=== PATIENT | female | born 1995 | race Caucasian/White ===

== ENCOUNTER 2016-08-23 11:48 | Emergency (ER) | payer OTHER ==
--- NOTE | 2016-08-23 11:54 | ED NURSING NOTES ---
Clinical Report - Nurses Formerly [facility] [address] [place] [address] 08/23/2016 8:10 Patient: SHERRI RAO TRIAGE Triage time 08:13. Acuity: LEVEL 3. Chief Complaint: NAUSEA, VOMITING and DIARRHEA. 08:22 08/23/16. Alert. No acute distress. --08:22 Simba Rai R.N. 08:17 08/23/16. BP: 112/81. HR: 116. RR: 17. O2 saturation: 99% on room air. Temp: 98.5 F (oral). Pain level now 02/19. --08:22 Simba Rai R.N. Weight: 90.7 kg stated. Height/Length: 68 inches Per Patient. BMI: 30.4. --08:15 Simba Rai R.N. Medications Vitamins Oral. --08:20 Simba Rai R.N. Allergies Sulfa Antibiotics. --08:20 Simba Rai R.N. Cefzil. --08:20 Simba Rai R.N. Medication/allergy information source: the patient. --08:22 Simba Rai R.N. History Historian: patient. Primary physician (no pcp. care through [facility]). ( 32 weeks . n/v/d and abdominal pain starting last night. states she began having low back pain and hip discomfort this morning. States abdominal pain came and went last night but hasn't been present for roughly 1 hour.). This started last night. 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 PAST MEDICAL HX: 1. Para 0. Abortions 0. Confirmed : EDC: 10/14/16. Has had care in clinic. SOCIAL HX: Never smoker. History of drug use: marijuana. Recently used drugs days ago. No alcohol use. FALL RISK ASSESSMENT: Fall risk assessment completed. No fall risk identified. NUTRITIONAL RISK ASSESSMENT: The nutritional risk assessment revealed no deficiencies. FUNCTIONAL ASSESSMENT: Functional assessment: no impairments noted. LEARNING NEEDS ASSESSMENT: The learning needs assessment revealed no barriers. SKIN INTEGRITY ASSESSMENT: Skin integrity risk assessment completed. No skin integrity risk identified. --08:22 Simba Rai R.N. PROBLEMS: Vaginitis. --08:20 Simba Rai R.N. ADDITIONAL SURGERIES: Wart removal. --08:20 Simba Rai R.N. Interventions ID band on patient. To treatment room. --08:22 Simba Rai R.N. PHYSICAL ASSESSMENT 08:23 08/23/16. GENERAL / NEURO / PSYCH: Alert. Oriented X 4. Appears in no acute distress. HEENT: Mucous membranes are pink. RESPIRATORY: Respirations not labored. CVS: Capillary refill less than 2 seconds. GI / : Abdomen soft and nontender. SKIN: Skin is warm and dry. --08:23 Simba Rai R.N. NURSING PROGRESS NOTES ( T 158). --08:23 Simba Rai R.N. 08:23 08/23/16. The plan of care for this patient has been created. Head of bed elevated. Call light placed in reach. Bed placed in lowest position. Brakes of bed on. Patient ready for evaluation- chart flagged. --08:23 Simba Rai R.N. 08:33 08/23/2016 Site #1 started via IV in the right antecubital space with an 20g angiocath, with aseptic technique and good blood return; one attempt. Blood drawn: rainbow set. Labeled in the presence of the patient and sent to the lab. Saline lock flushed with 10 mL saline. --08:33 Regina Broja R.N. 08:34 08/23/2016 Started bag #1 1000 mL IV Fluids IV NS (Saline); at 1000 mL/hr over 1 hour(s) via site #1 via IV pump. Allergies verified and confirmed 5 rights. IV patency established. IV site checked: no pain, redness, or swelling. IV flushed thoroughly pre- and post-medication administration. --08:34 Regina Borja R.N. 09:25 08/23/2016 Tylenol (Acetaminophen) PO Capsules 650 mg given. Allergies verified and confirmed 5 rights. --09:30 Simba Rai R.N. 09:20. Patient ID band checked for patient name and birthdate: patient confirmed. Instructions provided to collect clean catch urine and patient verbalized understanding. Clean catch urine collected with return of sofía-colored clear urine; odor is normal; sample sent to lab for urinalysis and culture. Specimen labeled in the presence of the patient. --09:34 Simba Rai R.N. 09:44 08/23/16. BP: 101/70. HR: 104. RR: 16. Pain level now 02/19. --09:44 Simba Rai R.N. 09:29 08/23/2016 IV Fluids IV NS Discontinued: bag #1 infused. Total amount infused: 1000 mL. IV patency established. IV site checked: no pain, redness, or swelling. IV flushed thoroughly. --09:50 Simba Rai R.N. <<STRICKEN ENTRY-- 09:30 08/23/2016 Started bag #1 1000 mL IV Fluids IV NS (Saline); at 750 mL/hr over 90 minute(s) via site #1 via IV pump. Allergies verified and confirmed 5 rights. IV patency established. IV site checked: no pain, redness, or swelling. IV flushed thoroughly pre- and post-medication administration. Completed per protocol. --09:49 Simba Rai R.N. --END STRIKE>> Change to Details. --09:49 Simba Rai R.N. 09:30 08/23/2016 Started bag #2 1000 IV Fluids IV NS (Saline); at 750 mL/hr over 90 minute(s) via site #1 via IV pump. Allergies verified and confirmed 5 rights. IV patency established. IV site checked: no pain, redness, or swelling. IV flushed thoroughly pre- and post-medication administration. Completed per protocol. --09:49 Simba Rai R.N. 09:58 08/23/16. Patient transported by stretcher with tech. (to OB for NST. Handoff report given to OB by phone.). --09:58 Simba Rai R.N. 11:13 08/23/16. BP: 109/68. HR: 100. RR: 15. O2 saturation: 100%. Pain level now 01/19. --11:13 Simba Rai R.N. 11:10 08/23/2016 IV Fluids IV NS Bag Change: bag #2 infused. Total amount infused: 1000. STARTED bag #3 (1000 mL) at 999 mL/hr via IV pump. Confirmed 5 rights. IV patency established. IV site checked: no pain, redness, or swelling. IV flushed thoroughly. --11:47 Simba Rai R.N. 11:12 08/23/16. Patient returned by wheelchair with tech. (OB). --11:12 Simba Rai R.N. 11:46 08/23/2016 Macrobid PO Capsules 100 mg given. Allergies verified and confirmed 5 rights. --11:56 Simba Rai R.N. 12:12 08/23/16. BP: 104/55. HR: 82. RR: 14. O2 saturation: 100% on room air. Temp: 98.2 F (oral). Pain level now 12/20. --12:13 Simba Rai R.N. 12:13 08/23/16. --12:13 Simba Rai R.N. Assisted patient to bathroom, to ambulate and back to bed; tolerated well. --12:17 Simba Rai R.N. 12:34 08/23/2016 IV Fluids IV NS Discontinued: bag #3 infused upon discharge. Total amount infused: 1000 mL. IV patency established. IV site checked: no pain, redness, or swelling. IV flushed thoroughly. --12:44 Simba Rai R.N. DISPOSITION / DISCHARGE 12:37 08/23/2016 Site #1 removed upon discharge. Catheter intact. Bandage applied. --12:42 Simba Rai R.N. 12:43 08/23/16. Departure time: 1240. Condition at departure: improved and stable. ( aware of discharge vitals). No learning barriers present. Discharge instructions provided and reviewed with the patient and spouse. Reviewed medication(s) side effects, precautions, dosing and course information. Prescription(s) given to the patient. Patient and desktop architect verbalized understanding. Written instructions provided in Czech. The patient was discharged by the physician. She was discharged home and accompanied by desktop architect. She left the Emergency Department ambulatory and via private vehicle. Metal Model Builder driving. --12:43 Simba Rai R.N. 12:41 08/23/16. BP: 103/60. HR: 101. RR: 16. O2 saturation: 100% on room air. Temp: 98.1 F (oral). Pain level now 12/20. --12:43 Simba Rai R.N. Locked/Released at 08/24/2016 6:56 by Simba Rai R.N.
--- NOTE | 2016-08-23 11:54 | ED CLINICAL REPORT ---
Clinical Report - Physicians/Mid Levels [facility] [address] [place] [address] 08/23/2016 8:10 Patient: SHERRI RAO Arrived- By private vehicle. Historian- patient. HISTORY OF PRESENT ILLNESS Chief Complaint: VOMITING and DIARRHEA. This started today and is still present. It was abrupt in onset and has been constant but is not gone now. The patient has had nausea, vomiting and diarrhea. No black stools, bloody stools or abdominal pain. She has had contact with a sick significant other. (similar symptoms after eating pizza). The illness is described as moderate. (Reports being a . Has regular care. Estimated gestational age is 32w. Patient with lower abdominal pain that radiates to the back and legs. No swelling noted. NO hx of DVT/PE. NO CP or shortness of breath). Similar symptoms previously: None. Recent medical care: Not recently seen/assessed. REVIEW OF SYSTEMS No fever, headache, chest pain, difficulty breathing or skin rash. No chills, fever, abnormal bleeding, urinary frequency or vaginal discharge. No difficulty with urination. Currently . PAST HISTORY PCP: Eloina Correaife Vaginitis. Wart removal. SOCIAL HISTORY Never smoker. History of occasional drug use: marijuana. No alcohol use. No recent travel. Is a local resident. ADDITIONAL NOTES The nursing notes have been reviewed. PHYSICAL EXAM Vital Signs: 08/23/2016 08:17 BP: 112/81. HR: 116. RR: 17. O2 saturation: 99%. Temp: 98.5 F. Blood pressure normal. Tachycardic. Oxygen saturation normal. Appearance: Alert. Oriented X3. Patient in mild distress. Eyes: Pupils equal, round and reactive to light. Eyes normal inspection. ENT: Ears normal. Nose normal. Pharynx normal. Neck: Normal inspection. Neck supple. CVS: Normal heart rate and rhythm. Heart sounds normal. Pulses normal. Respiratory: No respiratory distress. Breath sounds normal. No rales, rhonchi or wheezes. Abdomen: Soft and nontender. Bowel sounds normal. (Fundus palpated between the xyphoid process and umbilicus.). Back: Normal inspection. Skin: Skin warm and dry. Normal skin color. No rash. Normal skin turgor. Extremities: Extremities exhibit normal ROM. No lower extremity edema. No calf tenderness. No lower extremity edema. LABS, X-RAYS, AND EKG Laboratory Tests: UA-Culture if indicated: (THO: 08/23/2016 10:20) ( [facility] 08/23/2016 10:59) Final results Test Result Flag Units (Reference) URINE COLOR YELLOW URINE APPEARANCE CLEAR URINE GLUCOSE NEGATIVE (NEGATIVE) URINE BILIRUBIN NEGATIVE (NEGATIVE) URINE KETONE 3+ (NEGATIVE) URINE SPECIFIC GRAVITY >= 1.030 (1.010-1.030) URINE PH 6.0 (5.0-8.0) URINE PROTEIN TRACE (NEGATIVE) URINE UROBILINOGEN 0.2 EU/dL (0.2-1.0) URINE NITRITE NEGATIVE (NEGATIVE) URINE BLOOD NEGATIVE (NEGATIVE) URINE LEUK ESTERASE NEGATIVE (NEGATIVE) URINE RBC 1-3 rbc/hpf (0-1) URINE WBC 1-3 wbc/hpf (0-1) URINE EPITHELIAL CELLS 0-1 EPI/hpf (0-5) URINE BACTERIA MODERATE (2+ TO 3+) (NONE SEEN) URINE COMMENT CULTURE INDICATED 2+ MUCOUS. FEW TRANSITIONAL EPITHELIAL CELLS.URINE CULTURES ARE SET-UP BASED ON THE FOLLOWING CRITERIA:POSITIVE NITRITEPOSITIVE LEUKOCYTE ESTERASEGREATER THAN 10 WHITE BLOOD CELLSMODERATE (2+) OR GREATER BACTERIA UA-Culture if indicated: (THO: 08/23/2016 09:20) ( [facility] 08/23/2016 09:55) Final results Test Result Flag Units (Reference) URINE COLOR YELLOW URINE APPEARANCE CLEAR URINE GLUCOSE NEGATIVE (NEGATIVE) URINE BILIRUBIN ICTOTEST NEG (NEGATIVE) URINE KETONE 3+ (NEGATIVE) URINE SPECIFIC GRAVITY >= 1.030 (1.010-1.030) URINE PH 5.5 (5.0-8.0) URINE PROTEIN 1+ (NEGATIVE) URINE UROBILINOGEN 0.2 EU/dL (0.2-1.0) URINE NITRITE NEGATIVE (NEGATIVE) URINE BLOOD TRACE-INTACT (NEGATIVE) URINE LEUK ESTERASE POSITIVE (NEGATIVE) URINE RBC 5-10 rbc/hpf (0-1) URINE WBC 25-50 wbc/hpf (0-1) URINE EPITHELIAL CELLS 5-10 EPI/hpf (0-5) URINE BACTERIA MODERATE (2+ TO 3+) (NONE SEEN) URINE COMMENT CULTURE INDICATED 2+ MUCOUS. FEW TRANSITIONAL EPITHELIAL CELLS.URINE CULTURES ARE SET-UP BASED ON THE FOLLOWING CRITERIA:POSITIVE NITRITEPOSITIVE LEUKOCYTE ESTERASEGREATER THAN 10 WHITE BLOOD CELLSMODERATE (2+) OR GREATER BACTERIA CBC w Diff: (THO: 08/23/2016 08:30) ( MsgRcvd 08/23/2016 08:44) Final results Test Result Flag Units (Reference) WHITE BLOOD COUNT 13.0 H K/uL (4.5-11.5) RED BLOOD COUNT 4.96 M/uL (4.00-5.20) HEMOGLOBIN 13.7 gm/dL (12.0-16.0) HEMATOCRIT 40.6 % (36.0-46.0) MEAN CELL VOLUME 82 fL (80-100) MEAN CORPUSCULAR HGB 28 pg (26-34) MEAN CORPUSCULAR HGB CONC 34 g/dL (31-37) RED CELL DISTRIBUTION WIDTH 12.4 % (11.6-14.8) PLATELET COUNT 280 K/uL (150-400) NEUTROPHIL % 94.2 H % (50-75) LYMPH % 3.2 L % (25-40) MONO % 2.6 L % (3-14) EOSINOPHIL % 0 % (0-4) BASOPHIL % 0 % (0-2) CMP: (THO: 08/23/2016 08:30) ( MsgRcvd 08/23/2016 09:24) Final results Test Result Flag Units (Reference) GLUCOSE 131 H mg/dL (70-110) BUN 8 mg/dL (7-18) CREATININE 0.6 mg/dL (0.6-1.3) Estimated GFR >60 mL/min Estimated GFR- >60 mL/min Note: Persistent reduction over 3 months in eGFR<60 mL/min/1.73 m2 defines CKD. Patients with eGFR values>=60 mL/min/1.73 m2 may also have CKD if evidence ofpersistent proteinuria. Additional information may be foundat www.kidney.org. SODIUM 136 mmol/L (136-145) POTASSIUM 3.8 mmol/L (3.5-5.1) CHLORIDE 102 mmol/L (98-107) CARBON DIOXIDE 16 L mmol/L (21-32) CALCIUM 8.8 mg/dL (8.5-10.1) TOTAL PROTEIN 7.3 g/dL (6.4-8.2) ALBUMIN 3.1 L g/dL (3.3-5.0) BILIRUBIN, TOTAL 0.7 mg/dL (0.0-1.0) ALKALINE PHOSPHATASE 134 H U/L (46-116) AST (SGOT) 16 U/L (15-37) ALT (SGPT) 18 U/L (12-78) LIPASE 152 U/L (73-393) BETA HCG, QUANTITATIVE 61005 mIU/mL REFERENCE RANGE:Adult Males: <2 mIU/mLNon- Females: <6 mIU/mL Females:Approximate Approximate hCGGestational Age Range (mIU/mL) 0-1 week 0-501-2 weeks 40-3002-3 weeks 100-85255-1 weeks 500-22762-4 months 5,000-200,0002-3 months 10,000-100,0002nd trimester 3,000-50,0003rd trimester 1,000-50,000 Culture, Urine: (THO: 08/23/2016 10:20) ( MsgRcvd 08/24/2016 08:28) IP Test Result Flag Units (Reference) CULTURE, URINE DATE: 08/24/16 NO GROWTH AT:: NO GROWTH AT 1 DAY PRELIM REPORT: PRELIMINARY REPORT #1 Culture, Urine: (THO: 08/23/2016 09:20) ( MsgRcvd 08/24/2016 08:28) IP Test Result Flag Units (Reference) CULTURE, URINE DATE: 08/24/16 PRELIM REPORT: PRELIMINARY REPORT #1 VERY EARLY GROWTH: VERY EARLY GROWTH: CULTURE TOO YOUNG FOR WORKUP-REINCUBATED . PROGRESS AND PROCEDURES Course of Care: Patient with 32w and regular care. Patient with n/v/d and lower abdominal pain. + sick contact. Discussed with patient nausea medication. Report "none of those work" Reports marijuana helps. Declines offers of nausea medications. Is agreeable to Tylenol. Labs ordered for electrolyte abnormalities, UTI, and LFTs. Patient to be signed out to the oncoming doctor, Dr. Norris. 09:24 08/23/16. Assumed care from Dr Flores. Directed history and physical performed. She certainly has gastroenteritis. I want to be sure that she is not also in labor at [address] Luu agrees to send orders to L&D for NST and then she will return to finish her care in the ED. Her first liter of NS is infused. Brayan Norris MD Lower uterus is non-tender is soft and non-tender. Upper uterus firm and slightly tender. 10:10 08/23/16. Pt having an NST. Voided UA is either contaminated or UTI. Will get Cath spec. 11:52 08/23/16. NST is negative for contractions or abnormality. Note is reviewed. Cath UA postive for bacteria. Starting 3rd liter of NS. Disposition: Discharged. Condition: good. CLINICAL IMPRESSION Acute viral gastroenteritis. 32 WEEKS ASYMPTOMATIC BACTERURIA. INSTRUCTIONS (RECHECK IN 12 HOURS IF STILL VOMITING YOU NEED TO TAKE ANTIBIOTICS FOR THE BACTERIA IN YOUR URINE). Prescription Medications: Zofran (orally disintegrating tablets) 4 mg: take 1 orally every 4 hours as needed for nausea. Dispense five (5). No refill. Macrobid 100 mg: Take 1 capsule orally every 12 hours for 7 days. No refills. Substitution is permissible. Follow-up: Follow up with your doctor in two days if not well. (Electronically signed by Garth Norris MD 08/24/2016 23:47)
--- NOTE | 2016-08-23 11:54 | ED NURSING NOTES ---
Clinical Report - Nurses [facility] [address] [place] [address] 08/23/2016 8:10 Patient: SHERRI RAO TRIAGE Triage time 08:13. Acuity: LEVEL 3. Chief Complaint: NAUSEA, VOMITING and DIARRHEA. 08:22 08/23/16. Alert. No acute distress. --08:22 Simba Rai R.N. 08:17 08/23/16. BP: 112/81. HR: 116. RR: 17. O2 saturation: 99% on room air. Temp: 98.5 F (oral). Pain level now 02/19. --08:22 Simba Rai R.N. Weight: 90.7 kg stated. Height/Length: 68 inches Per Patient. BMI: 30.4. --08:15 Simba Rai R.N. Medications Vitamins Oral. --08:20 Simba Rai R.N. Allergies Sulfa Antibiotics. --08:20 Simba Rai R.N. Cefzil. --08:20 Simba Rai R.N. Medication/allergy information source: the patient. --08:22 Simba Rai R.N. History Historian: patient. Primary physician (no pcp. care through [facility]). ( 32 weeks . n/v/d and abdominal pain starting last night. states she began having low back pain and hip discomfort this morning. States abdominal pain came and went last night but hasn't been present for roughly 1 hour.). This started last night. Treatment PRODUCT OWNER: None. PAST MEDICAL HX: 1. Para 0. Abortions 0. Confirmed : EDC: 10/14/16. Has had care in clinic. SOCIAL HX: Never smoker. History of drug use: marijuana. Recently used drugs days ago. No alcohol use. FALL RISK ASSESSMENT: Fall risk assessment completed. No fall risk identified. NUTRITIONAL RISK ASSESSMENT: The nutritional risk assessment revealed no deficiencies. FUNCTIONAL ASSESSMENT: Functional assessment: no impairments noted. LEARNING NEEDS ASSESSMENT: The learning needs assessment revealed no barriers. SKIN INTEGRITY ASSESSMENT: Skin integrity risk assessment completed. No skin integrity risk identified. --08:22 Simba Rai R.N. PROBLEMS: Vaginitis. --08:20 Simba Rai R.N. ADDITIONAL SURGERIES: Wart removal. --08:20 Simba Rai R.N. Interventions ID band on patient. To treatment room. --08:22 iSmba Rai R.N. PHYSICAL ASSESSMENT 08:23 08/23/16. GENERAL / NEURO / PSYCH: Alert. Oriented X 4. Appears in no acute distress. HEENT: Mucous membranes are pink. RESPIRATORY: Respirations not labored. CVS: Capillary refill less than 2 seconds. GI / : Abdomen soft and nontender. SKIN: Skin is warm and dry. --08:23 Simba Rai R.N. NURSING PROGRESS NOTES ( T 158). --08:23 Simba Rai R.N. 08:23 08/23/16. The plan of care for this patient has been created. Head of bed elevated. Call light placed in reach. Bed placed in lowest position. Brakes of bed on. Patient ready for evaluation- chart flagged. --08:23 Simba Rai R.N. 08:33 08/23/2016 Site #1 started via IV in the right antecubital space with an 20g angiocath, with aseptic technique and good blood return; one attempt. Blood drawn: rainbow set. Labeled in the presence of the patient and sent to the lab. Saline lock flushed with 10 mL saline. --08:33 Regina Borja R.N. 08:34 08/23/2016 Started bag #1 1000 mL IV Fluids IV NS (Saline); at 1000 mL/hr over 1 hour(s) via site #1 via IV pump. Allergies verified and confirmed 5 rights. IV patency established. IV site checked: no pain, redness, or swelling. IV flushed thoroughly pre- and post-medication administration. --08:34 Regina Borja R.N. 09:25 08/23/2016 Tylenol (Acetaminophen) PO Capsules 650 mg given. Allergies verified and confirmed 5 rights. --09:30 Simba Rai R.N. 09:20. Patient ID band checked for patient name and birthdate: patient confirmed. Instructions provided to collect clean catch urine and patient verbalized understanding. Clean catch urine collected with return of sofía-colored clear urine; odor is normal; sample sent to lab for urinalysis and culture. Specimen labeled in the presence of the patient. --09:34 Simba Rai R.N. 09:44 08/23/16. BP: 101/70. HR: 104. RR: 16. Pain level now 02/19. --09:44 Simba Rai R.N. 09:29 08/23/2016 IV Fluids IV NS Discontinued: bag #1 infused. Total amount infused: 1000 mL. IV patency established. IV site checked: no pain, redness, or swelling. IV flushed thoroughly. --09:50 Simab Rai R.N. <<STRICKEN ENTRY-- 09:30 08/23/2016 Started bag #1 1000 mL IV Fluids IV NS (Saline); at 750 mL/hr over 90 minute(s) via site #1 via IV pump. Allergies verified and confirmed 5 rights. IV patency established. IV site checked: no pain, redness, or swelling. IV flushed thoroughly pre- and post-medication administration. Completed per protocol. --09:49 Simba Rai R.N. --END STRIKE>> Change to Details. --09:49 Simba Rai R.N. 09:30 08/23/2016 Started bag #2 1000 IV Fluids IV NS (Saline); at 750 mL/hr over 90 minute(s) via site #1 via IV pump. Allergies verified and confirmed 5 rights. IV patency established. IV site checked: no pain, redness, or swelling. IV flushed thoroughly pre- and post-medication administration. Completed per protocol. --09:49 Simba Rai R.N. 09:58 08/23/16. Patient transported by stretcher with tech. (to OB for NST. Handoff report given to OB by phone.). --09:58 Simba Rai R.N. 11:13 08/23/16. BP: 109/68. HR: 100. RR: 15. O2 saturation: 100%. Pain level now 01/19. --11:13 Simba Rai R.N. 11:10 08/23/2016 IV Fluids IV NS Bag Change: bag #2 infused. Total amount infused: 1000. STARTED bag #3 (1000 mL) at 999 mL/hr via IV pump. Confirmed 5 rights. IV patency established. IV site checked: no pain, redness, or swelling. IV flushed thoroughly. --11:47 Simba Rai R.N. 11:12 08/23/16. Patient returned by wheelchair with tech. (OB). --11:12 Simba Rai R.N. 11:46 08/23/2016 Macrobid PO Capsules 100 mg given. Allergies verified and confirmed 5 rights. --11:56 Simba Rai R.N. 12:12 08/23/16. BP: 104/55. HR: 82. RR: 14. O2 saturation: 100% on room air. Temp: 98.2 F (oral). Pain level now 12/20. --12:13 Simba Rai R.N. 12:13 08/23/16. --12:13 Simba Rai R.N. Assisted patient to bathroom, to ambulate and back to bed; tolerated well. --12:17 Simba Rai R.N. 12:34 08/23/2016 IV Fluids IV NS Discontinued: bag #3 infused upon discharge. Total amount infused: 1000 mL. IV patency established. IV site checked: no pain, redness, or swelling. IV flushed thoroughly. --12:44 Simba Rai R.N. DISPOSITION / DISCHARGE 12:37 08/23/2016 Site #1 removed upon discharge. Catheter intact. Bandage applied. --12:42 Simba Rai R.N. 12:43 08/23/16. Departure time: 1240. Condition at departure: improved and stable. ( aware of discharge vitals). No learning barriers present. Discharge instructions provided and reviewed with the patient and spouse. Reviewed medication(s) side effects, precautions, dosing and course information. Prescription(s) given to the patient. Patient and glue jointer feeder verbalized understanding. Written instructions provided in Portuguese. The patient was discharged by the physician. She was discharged home and accompanied by glue jointer feeder. She left the Emergency Department ambulatory and via private vehicle. Board Setter driving. --12:43 Smiba Rai R.N. 12:41 08/23/16. BP: 103/60. HR: 101. RR: 16. O2 saturation: 100% on room air. Temp: 98.1 F (oral). Pain level now 12/20. --12:43 Simba Rai R.N. Locked/Released at 08/24/2016 6:56 by Simba Rai R.N.
--- NOTE | 2016-08-23 11:54 | ED ORDER SUMMARY ---
..... Patient: SHERRI RAO OrderSheet Merged With [facility] VisitID: [id number] [address] [place] [address] 20y, F Registration Date/Time: 08/23/2016 ORDER SHEET Weight: 90.7 kg (stated) Allergies: Sulfa Antibiotics, Cefzil GENERAL ORDERS: CBC w Diff Urgent (08:08/23/2016 Yazmin Suarez) (Ack 8:27 RKaruga) (8:33 SReitz R.N.) CMP Urgent (08:08/23/2016 Yazmin Suarez) (Ack 8:27 RKaruga) (8:33 SReitz R.N.) Lipase Urgent (:08/23/2016 Yazmin Suarez) (Ack 8:27 RKaruga) (8:33 SReitz R.N.) Serum Quantitative Urgent (:08/23/2016 Yazmin Suarez) (Ack 8:27 RKaruga) (9:22 KWilliams R.N.) UA-Culture if indicated Urgent (08:08/23/2016 Yazmin Suarez) (Ack 8:27 RKaruga) (9:30 KWilliams R.N.) Pulse oximeter (:08/23/2016 Yazmin Suarez) (8:33 SReitz R.N.) Heart Tones (08:08/23/2016 Yazmin Suarez) (9:22 KWanelams R.N.) - (IV #3 at 1000 ml per hour for 500 ml) (11:48 08/23/2016 Chirag TRIVEDI) (11:50 KWilliams R.N.) MEDICATION ORDERS: Tylenol PO 650 mg (NOW) (08:44 08/23/2016 Yazmin Suarez) (9:30 KWilliams R.N.) Macrobid PO 100 mg (NOW) (11:48 08/23/2016 Chirag TRIVEDI) (11:56 KWilliams R.N.) IV FLUIDS: IV NS : initial bolus 1000 mL (1000 mL/hr), then none - for X1 (NOW) (08:08/23/2016 Yazmin Suarez) (8:34 SReitz R.N.) IV NS : initial bolus none -, then 750 mL/hr (NOW) (09:46 08/23/2016 Gisela Brown verbal order read back to Chirag TRIVEDI) (9:49 Gisela Brown) ORDER SHEET NOTES: [Electronically signed by Simba Rai R.N. (06:56 08/24/2016)] [Electronically signed by Garth Norris MD (23:47 08/24/2016)] [Electronically locked/signed by Simba Rai R.N. (06:56 08/24/2016)]
--- NOTE | 2016-08-23 11:54 | ED ORDER SUMMARY ---
..... Patient: SHERRI RAO OrderSheet [facility] VisitID: [id number] [address] [place] [address] 20y, F Registration Date/Time: 08/23/2016 ORDER SHEET Weight: 90.7 kg (stated) Allergies: Sulfa Antibiotics, Cefzil GENERAL ORDERS: CBC w Diff Urgent (08:08/23/2016 Yazmin Suarez) (Ack 8:27 RKaruga) (8:33 SReitz R.N.) CMP Urgent (08:08/23/2016 Yazmin Suarez) (Ack 8:27 RKaruga) (8:33 SReitz R.N.) Lipase Urgent (:08/23/2016 Yazmin Suarez) (Ack 8:27 RKaruga) (8:33 SReitz R.N.) Serum Quantitative Urgent (:08/23/2016 Yazmin Suarez) (Ack 8:27 RKaruga) (9:22 KWilliams R.N.) UA-Culture if indicated Urgent (08:08/23/2016 Yazmin Suarez) (Ack 8:27 RKaruga) (9:30 KWilliams R.N.) Pulse oximeter (:08/23/2016 Yazmin Suarez) (8:33 SReitz R.N.) Heart Tones (08:08/23/2016 Yazmin Suarez) (9:22 KWanelams R.N.) - (IV #3 at 1000 ml per hour for 500 ml) (11:48 08/23/2016 Chirag TRIVEDI) (11:50 KWilliams R.N.) MEDICATION ORDERS: Tylenol PO 650 mg (NOW) (08:44 08/23/2016 Yazmin Suarez) (9:30 KWilliams R.N.) Macrobid PO 100 mg (NOW) (11:48 08/23/2016 Chirag TRIVEDI) (11:56 KWilliams R.N.) IV FLUIDS: IV NS : initial bolus 1000 mL (1000 mL/hr), then none - for X1 (NOW) (08:08/23/2016 Yazmin Suarez) (8:34 SReitz R.N.) IV NS : initial bolus none -, then 750 mL/hr (NOW) (09:46 08/23/2016 Gisela Brown verbal order read back to Chirag TRIVEDI) (9:49 Gisela Brown) ORDER SHEET NOTES: [Electronically signed by Simba Rai R.N. (06:56 08/24/2016)] [Electronically signed by Garth Norris MD (23:47 08/24/2016)] [Electronically locked/signed by Simba Rai R.N. (06:56 08/24/2016)]
--- NOTE | 2016-08-24 23:47 | ED MAR SUMMARY ---
..... Medication Administration Record [facility] [address] [place] [address] Patient: SHERRI RAO Visit ID: [id number] 20y, F Weight: 90.7 kg Height/Length: 68 in BMI: 30.4 ALLERGIES: Cefzil, Sulfa Antibiotics Start 08:34 08/23/2016 Regina Borja R.N., Stop 09:29 08/23/2016 Simba Rai R.N. Medication Administered: IV NS (SALINE), Dose: IV Fluids over 1 hour(s), Rate: 1000 mL/hr, Dispensed: 1000 mL bag, Site: #1 right AC. Medication Ordered: IV NS : initial bolus 1000 mL (1000 mL/hr), then none - for X1 (NOW). Given 09:25 08/23/2016 Simba Rai R.N. Medication Administered: TYLENOL [PO] (ACETAMINOPHEN), Dose: 650 mg Capsules PO. Medication Ordered: Tylenol PO 650 mg (NOW). Start 09:30 08/23/2016 Simba Rai R.N., Stop 12:34 08/23/2016 Simba Rai R.N. Medication Administered: IV NS (SALINE), Dose: IV Fluids over 90 minute(s), Rate: 750 mL/hr, Dispensed: 1000 mL bag, Site: #1 right AC. Medication Ordered: IV NS : initial bolus none -, then 750 mL/hr (NOW). Given 11:46 08/23/2016 Simba Rai R.N. Medication Administered: MACROBID [PO], Dose: 100 mg Capsules PO. Medication Ordered: Macrobid PO 100 mg (NOW).
--- NOTE | 2016-08-24 23:47 | ED MED RECONCILIATION SUMMARY ---
Patient: SHERRI RAO Medication Reconciliation Report [facility] VisitID: [id number] [address] [place] [address] 20y, F Registration Date/Time: 08/23/2016 Weight: 90.7 kg Height/Length: 68 in. BMI: 30.4 ALLERGIES: Cefzil, Sulfa Antibiotics The patient's Home Medications are listed below: THE FOLLOWING MEDICATIONS NEED TO BE RECONCILED: Vitamins Oral The source(s) of the original Home Medication information: patient The following Medications were given to the patient in the Emergency Department: IV NS IV Fluids bolus 0, then 1000 mL/hr, administered: 08/23/2016 8:34:00 AM Tylenol [PO] PO 650 mg, administered: 08/23/2016 9:25:00 AM IV NS IV Fluids bolus 0, then 750 mL/hr, administered: 08/23/2016 9:30:00 AM Macrobid [PO] PO 100 mg, administered: 08/23/2016 11:46:00 AM The following Medications were prescribed to the patient: Zofran (orally disintegrating tablets) 4 mg: take 1 orally every 4 hours as needed for nausea. Dispense five (5). No refill. -- Garth Norris MD Macrobid 100 mg: Take 1 capsule orally every 12 hours for 7 days. No refills. Substitution is permissible. -- Garth Norris MD
--- NOTE | 2016-08-24 23:47 | ED MED RECONCILIATION SUMMARY ---
Patient: SHERRI RAO Medication Reconciliation Report [facility] VisitID: [id number] [address] [place] [address] 20y, F Registration Date/Time: 08/23/2016 Weight: 90.7 kg Height/Length: 68 in. BMI: 30.4 ALLERGIES: Cefzil, Sulfa Antibiotics The patient's Home Medications are listed below: THE FOLLOWING MEDICATIONS NEED TO BE RECONCILED: Vitamins Oral The source(s) of the original Home Medication information: patient The following Medications were given to the patient in the Emergency Department: IV NS IV Fluids bolus 0, then 1000 mL/hr, administered: 08/23/2016 8:34:00 AM Tylenol [PO] PO 650 mg, administered: 08/23/2016 9:25:00 AM IV NS IV Fluids bolus 0, then 750 mL/hr, administered: 08/23/2016 9:30:00 AM Macrobid [PO] PO 100 mg, administered: 08/23/2016 11:46:00 AM The following Medications were prescribed to the patient: Zofran (orally disintegrating tablets) 4 mg: take 1 orally every 4 hours as needed for nausea. Dispense five (5). No refill. -- Garth Norris MD Macrobid 100 mg: Take 1 capsule orally every 12 hours for 7 days. No refills. Substitution is permissible. -- Garth Norris MD
--- NOTE | 2016-08-24 23:47 | ED DISCHARGE INSTRUCTIONS ---
Patient: SHERRI RAO General Instructions [facility] VisitID: [id number] [place] [address] 20y, F Registration Date/Time: 08/23/2016 Acute viral gastroenteritis. 32 WEEKS ASYMPTOMATIC BACTERURIA. INSTRUCTIONS (RECHECK IN 12 HOURS IF STILL VOMITING YOU NEED TO TAKE ANTIBIOTICS FOR THE BACTERIA IN YOUR URINE). Prescription Medications: Zofran (orally disintegrating tablets) 4 mg: take 1 orally every 4 hours as needed for nausea. Dispense five (5). No refill. Macrobid 100 mg: Take 1 capsule orally every 12 hours for 7 days. No refills. Substitution is permissible. Follow-up: Follow up with your doctor in two days if not well. ADDITIONAL INFORMATION Viral Gastroenteritis (6Yr-Adult) Gastroenteritis is another name for thestomach flu.It is most often caused by a virus that affects the stomach and intestinal tract. Symptoms include stomach cramping and fever, vomiting and/or diarrhea, and can last from 2 to 7 days. The danger from repeated vomiting or diarrhea is dehydration. This is the loss of too much water and minerals from the body. When this occurs, body fluids must be replaced. Antibiotics are not effective for this illness, but simple home treatment will be helpful. Home Care If symptoms are severe, rest at home for the next 24 hours. Avoid tobacco, caffeine, and alcohol use, which can worsen symptoms. Acetaminophen (Tylenol) or ibuprofen (Motrin, Advil) may be usedfor fever or pain unless another medication was prescribed. NOTE: If you have chronic liver or kidney disease or ever had a stomach ulcer or GI bleeding, talk with your doctor before using these medicines. Aspirin should never be used in anyone under 18 years of age who is ill with a fever. It may cause severe liver damage. If medicines for diarrhea or vomiting were prescribed, be sure they are takenonly as directed. If vomiting, drink small amounts of clear fluids (such as water, sports drinks, clear sodas) at frequent intervals to prevent dehydration. Start with 1 to 2 tablespoons every 10 minutes. Once vomiting stops, follow these guidelines: During The First 12 To 24 Hours follow the diet below: Beverages: Sport drinks like Gatorade, soft drinks without caffeine; mahsa vero, mineral water (plain or flavored), decaffeinated tea and coffee. Soups: Clear broth, consomm and bouillon Desserts: Plain gelatin (Jell-O), Popsicles and fruit juice bars. During The Next 24 Hours you may add the following to the above: Hot cereal, plain toast, bread, rolls, crackers Plain noodles, rice, mashed potatoes, chicken noodle or rice soup Unsweetened canned fruit (avoid pineapple), bananas Limit fat intake to less than 15 grams per day by avoiding margarine, butter, oils, mayonnaise, sauces, gravies, fried foods, peanut butter, meat, poultry, and fish. Limit fiber; avoid raw or cooked vegetables, fresh fruits (except bananas), and bran cereals. Limit caffeine and chocolate. Do not use spices or seasonings except salt. During The Next 24 Hours The patient can gradually resume a normal diet as symptoms lessen. Preventing Spread Hand washing with soap and water is the best way to prevent the spread of viruses. Caregivers should wash their hands before andafter touching the sick person. The sick person, as well as everyone in the family,should wash their hands after using the toilet and before meals. Clean the toilet after each use. People with diarrhea should not prepare food for others. If you are preparing your own foods, wash your hands before and after. Follow Up with your doctor as advised. Call your doctor if you are not improving over the next 2 to 3 days. If a stool (diarrhea) sample was taken, you may call in 2 days (or as directed) for the results. Get Prompt Medical Attention if any of the following occur: Increasing abdominal pain Continued vomiting (unable to keep liquids down) Frequent diarrhea (more than 5 times a day) Blood in vomit or stool (black or red color) Dark urine, reduced urine output, or extreme thirst Weakness, dizziness, fainting Drowsiness, confusion, stiff neck, or seizure Fever of 100.4F (38C) oral or higher, not better with fever medication New rash Ondansetron Oral disintegrating tablet What is this medicine? ONDANSETRON (on MARIELLE se sumit) is used to treat nausea and vomiting caused by chemotherapy. It is also used to prevent or treat nausea and vomiting after surgery. How should I use this medicine? These tablets are made to dissolve in the mouth. Do not try to push the tablet through the foil backing. With dry hands, peel away the foil backing and gently remove the tablet. Place the tablet in the mouth and allow it to dissolve, then swallow. While you may take these tablets with water, it is not necessary to do so. Talk to your supervisor correspondence section regarding the use of this medicine in children. Special care may be needed. What side effects may I notice from receiving this medicine? Side effects that you should report to your doctor or health child care associate as soon as possible: allergic reactions like skin rash, itching or hives, swelling of the face, lips, or tongue breathing problems dizziness fast or irregular heartbeat feeling faint or lightheaded, falls fever and chills swelling of the hands and feet tightness in the chest Side effects that usually do not require medical attention (report to your doctor or health child care associate if they continue or are bothersome): constipation or diarrhea headache What may interact with this medicine? Do not take this medicine with any of the following medications: -apomorphine -cisapride -dofetilide -dronedarone -pimozide -thioridazine -ziprasidone This medicine may also interact with the following medications: -carbamazepine -phenytoin -rifampicin -tramadol -other medicines that prolong the QT interval (cause an abnormal heart rhythm) What if I miss a dose? If you miss a dose, take it as soon as you can. If it is almost time for your next dose, take only that dose. Do not take double or extra doses. Where should I keep my medicine? Keep out of the reach of children. Store between 2 and 30 degrees C (36 and 86 degrees F). Throw away any unused medicine after the expiration date. What should I tell my health care provider before I take this medicine? They need to know if you have any of these conditions: heart disease history of irregular heartbeat liver disease low levels of magnesium or potassium in the blood an unusual or allergic reaction to ondansetron, granisetron, other medicines, foods, dyes, or preservatives or trying to get breast-feeding What should I watch for while using this medicine? Check with your doctor or health child care associate as soon as you can if you have any sign of an allergic reaction. You have been given the following additional information: Gastroenteritis, Viral (6Y-Adult) Ondansetron Oral disintegrating tablet (Electronically signed by Garth Norris MD 08/24/2016 23:47)
--- NOTE | 2016-08-24 23:47 | ED MAR SUMMARY ---
..... Medication Administration Record [facility] [address] [place] [address] Patient: SHERRI RAO Visit ID: [id number] 20y, F Weight: 90.7 kg Height/Length: 68 in BMI: 30.4 ALLERGIES: Cefzil, Sulfa Antibiotics Start 08:34 08/23/2016 Regina Borja R.N., Stop 09:29 08/23/2016 Simba Rai R.N. Medication Administered: IV NS (SALINE), Dose: IV Fluids over 1 hour(s), Rate: 1000 mL/hr, Dispensed: 1000 mL bag, Site: #1 right AC. Medication Ordered: IV NS : initial bolus 1000 mL (1000 mL/hr), then none - for X1 (NOW). Given 09:25 08/23/2016 Simba Rai R.N. Medication Administered: TYLENOL [PO] (ACETAMINOPHEN), Dose: 650 mg Capsules PO. Medication Ordered: Tylenol PO 650 mg (NOW). Start 09:30 08/23/2016 Simba Rai R.N., Stop 12:34 08/23/2016 Simba Rai R.N. Medication Administered: IV NS (SALINE), Dose: IV Fluids over 90 minute(s), Rate: 750 mL/hr, Dispensed: 1000 mL bag, Site: #1 right AC. Medication Ordered: IV NS : initial bolus none -, then 750 mL/hr (NOW). Given 11:46 08/23/2016 Simba Rai R.N. Medication Administered: MACROBID [PO], Dose: 100 mg Capsules PO. Medication Ordered: Macrobid PO 100 mg (NOW).
== END 2016-08-23 12:40 | disposition home or self-care (01) ==
LOC: ED SRH 11:48
DX: O99.89 Other specified diseases and conditions complicating pregnancy, childbirth and the puerperium (principal); A08.4 Viral intestinal infection, unspecified; R82.79 Other abnormal findings on microbiological examination of urine; Z3A.32 32 weeks gestation of pregnancy
CPT/HCPCS: 90004; 90100; 90197; 90469; 92235; 95059